=== PATIENT | male | born 1950 | race Caucasian/White ===

== ENCOUNTER → 2016-03-24 | Outpatient (CLI) | payer BC, OTHER ==
[~2016-03-24] MED LIST: AGM875 PO; ASPEC81 PO; ATEN50TA8 PO; AVP150 PO; GLC500 PO; LRT5 PO; MCR5 PO; PRLSR20 PO; SIMV40TA4 OR
[2016-03-24 17:52] LABS: ESTIMATED AVERAGE GLUCOSE 197 mg/dl; HA1C FLAG Normal (Normal)
== END | disposition home or self-care (01) ==
LOC: C.LABMFLN 11:39
PROVIDERS: ATTEND Family Medicine
DX: E78.00 Pure hypercholesterolemia, unspecified (principal)

== ENCOUNTER → 2016-11-03 | Outpatient (CLI) | payer BC ==
[2016-11-03 13:50] LABS: ALT/SGPT 40 U/L (12-78); BLOOD UREA NITROGEN 17 mg/dl (7-18); CALCIUM 9.4 mg/dl (8.5-10.1); CARBON DIOXIDE 27 mmol/L (21-32); CHLORIDE 101 mmol/L (98-107); CHOLESTEROL 125 mg/dl (0-200); GLUCOSE 157 mg/dl (70-99); POTASSIUM 3.7 mmol/L (3.5-5.1); SODIUM 136 mmol/L (136-145); TRIGLYCERIDES 307 mg/dl (0-150); VERY LOW DENSITY LIPOPROT CALC 61 mg/dl
[2016-11-03 13:51] LABS: ESTIMATED AVERAGE GLUCOSE 206 mg/dl; HA1C FLAG Normal (Normal)
[2016-11-03 13:53] LABS: AST/SGOT 23 U/L (15-37); CHOLESTEROL/HDL RATIO 3.9; HDL CHOLESTEROL 32 mg/dl; LDL CHOLESTEROL CALCULATED 32 mg/dl
[2016-11-03 18:17] LABS: RATIO 20.5 mcg/mg (0-30.0)
== END | disposition home or self-care (01) ==
LOC: C.LABMFLN 08:10
PROVIDERS: ATTEND Family Medicine
DX: I10 Essential (primary) hypertension (principal); E11.9 Type 2 diabetes mellitus without complications

== ENCOUNTER → 2017-03-15 | Outpatient (CLI) | payer BC ==
[2017-03-15 13:34] LABS: HEMOGLOBIN A1C 8.9 % (4.5-5.6)
[2017-03-15 14:05] LABS: ALT/SGPT 37 U/L (12-78); AST/SGOT 20 U/L (15-37); BLOOD UREA NITROGEN 20 mg/dl (7-18); CALCIUM 9.3 mg/dl (8.5-10.1); CARBON DIOXIDE 27 mmol/L (21-32); CREATININE 1.01 mg/dl (0.60-1.40); GLUCOSE 154 mg/dl (70-99); POTASSIUM 4.2 mmol/L (3.5-5.1); SODIUM 134 mmol/L (136-145)
[2017-03-15 14:07] LABS: ALKALINE PHOSPHATASE 18 U/L (45-117); CHOLESTEROL 127 mg/dl (0-200); LDL CHOLESTEROL CALCULATED 40 mg/dl; TOTAL PROTEIN 7.4 gm/dl (6.4-8.2)
== END | disposition home or self-care (01) ==
LOC: C.LABMFLN 09:07
PROVIDERS: ATTEND Family Medicine
DX: I10 Essential (primary) hypertension (principal); E11.9 Type 2 diabetes mellitus without complications; E78.00 Pure hypercholesterolemia, unspecified